=== PATIENT | male | born 1990 | race Caucasian/White ===

== ENCOUNTER 2023-08-19 11:44 | Emergency (ER) | payer OTHER, SELFPAY ==
--- NOTE | ~2023-08-19 | CT_ITS ---
EXAMINATION: CT ABDOMEN AND PELVIS WITH CONTRAST CLINICAL INFORMATION: Epigastric pain COMPARISON: None available. TECHNIQUE: Multidetector volumetric images were obtained from the superior aspect of the liver through the pubic symphysis following administration 85 mL of Omnipaque 350 intravenous contrast. Sagittal and coronal reformatted images were obtained on the technologist's workstation. Oral contrast: No This CT examination was performed using dose optimization techniques as appropriate, variously including the following: *Automated exposure control *Adjustment of mA and/or kV according to patient size (this includes techniques or standardized protocols for targeted exams where dose is matched to indication/reason for exam; i.e. extremities or head) *Use of iterative reconstruction technique DLP: 1113 mGy-cm FINDINGS: LUNG BASES: Small right pleural effusion. ABDOMINAL AND PELVIC WALL: Mild subcutaneous edema in the ventral abdominal wall. LIVER AND BILIARY TREE: Markedly hypoattenuating hepatic parenchyma compatible with hepatic steatosis. Liver is enlarged measuring 24.4 cm in span. GALLBLADDER: Unremarkable. PANCREAS: There is a 11.2 cm mixed attenuation lesion which is favored to be arising from the pancreatic body and tail with components measuring simple fluid attenuation and other components measuring high density. There are several additional loculated more simple-appearing peripancreatic fluid collections for example measuring 4.6 cm abutting the pancreatic tail, measuring 4 cm interposed between the pancreatic tail and splenic hilum and measuring 5.1 cm along the greater curvature of the stomach. There is some inflammatory stranding surrounding the pancreas. SPLEEN: The spleen is mildly enlarged measuring 14 cm in span ADRENAL GLANDS: Unremarkable. KIDNEYS AND URETERS: Unremarkable. GASTROINTESTINAL TRACT: Small hiatal hernia. There is duodenal wall thickening, possibly reactive. The appendix is not identified however there is no dilated tubular structure in the right lower quadrant to suggest appendicitis. VASCULAR: The large pancreatic body/tail lesion displaces the pancreatic vessels posteriorly. The splenic vein is attenuated. LYMPH NODES/PERITONEUM: No lymphadenopathy. FREE FLUID: There is small volume ascites, measuring simple fluid attenuation.. BLADDER: Unremarkable. PELVIC VISCERA: Unremarkable. OSSEOUS STRUCTURES: Tiny sclerotic density in the right femoral neck possibly reflecting a bone island. CT/CT abdomen pelvis w IV con IMPRESSION: 1. There is a 11.2 cm mixed attenuation lesion which is favored to be arising from the pancreatic body and tail with components measuring simple fluid attenuation and other components measuring high density, unclear based on the single phase of contrast timing if these could be intrinsically high density components such as blood products versus active bleeding, alternatively solid enhancing components. Findings are favored to reflect a complex hemorrhagic pancreatic pseudocyst in the setting of pancreatitis given multiple adjacent additional simple-appearing peripancreatic collections suggestive of pseudocysts and the mild peripancreatic stranding and small volume ascites suggesting pancreatitis, for which correlation with lipase is recommended, and if clinical concern for active bleeding into the lesion and multiphase CT abdomen could be obtained. The other differential consideration would be mixed solid and cystic pancreatic lesion such as a mucinous cystic neoplasm, and therefore recommend either short interval follow-up imaging or a multiphase CT or MR abdomen depending on degree of clinical suspicion. 2. Hepatomegaly and hepatic steatosis. 3. Mild splenomegaly. 4. Small right pleural effusion and small volume ascites. 5. Duodenal wall thickening, possibly reactive given suspicion for pancreatitis, though correlation with lipase as duodenitis would be another differential consideration. 6. Mild subcutaneous edema in the ventral abdominal wall.
[2023-08-19 12:06] VITALS: BP 137/83; BP 150/80; PULSE 100; PULSE 86; RESP 16; TEMP 36.5; O2SAT 100; O2SAT 99; BMI 34.0
--- NOTE | 2023-08-19 12:29 | ED.ABDPAIN ---
HPI - Abdominal Pain General Chief Complaint: General Medical Stated Complaint: ABD PAIN,FELT POP PER EMS Time Seen by Provider: 08/19/23 11:54 Source: patient and old records reviewed Mode of arrival: EMS Limitations: no limitations History of Present Illness HPI narrative: 33 yo male with PMH of anxiety, HTN, PUD - just diagnosed outside EGD start of July on PPI. Recent increase in ETOH some shakes when he's not drinking. Notes he was at work today when he bent forward and felt a pop and severe pain in upper abdomen. The pain has since improved but he still has severe pain. He was diaphoretic on EMS arrival. He has pain anytime he moves. Denies NSAID use. He notes for his abdominal pain and lack of appetite he has been having recently the PPI helps a lot he had blood work done with his PCP - he denies known derangements and has not had US or CT scan for it. MD elicited complaint: abdominal pain Pertinent past history: none Onset (ago): hour(s) (11am today) Pain Consistency: constant Location: epigastric Severity: severe Radiation: none Migration to: no migration Exacerbating factors: movement Relieving factors: nothing Associated symptoms: nausea Related Data Allergies Allergy/AdvReac Type Severity Reaction Status Date / Time No Known Allergies Allergy Verified 08/19/23 12:18 Review of Systems Review of Systems Constitutional : No Weight loss, No Fever, No Chills ENT/Mouth : No sore throat, No Rhinorrhea Eyes: No Swelling, No Redness Cardiovascular : No Chest Pain, No SOB, NoEdema Respiratory : No Cough, No Sputum, No Wheezing Gastrointestinal : Positive Nausea, no Vomiting, no Diarrhea, positive abdominal Pain, No Hematochezia, No Melena Genitourinary : No Dysuria, No Urinary Frequency, No Hematuria, No Urgency Musculoskeletal : No joint pain, No Myalgias, No Joint Swelling Skin : No Skin Lesions, No rash Neuro : No Weakness, No Numbness, No Dizziness, No Headache Psych : No Anxiety/Panic, No Depression All other systems reviewed and are negative. [facility] Past Medical History Attestation statement: The following information was validated with the patient. Source: old records reviewed Onset Date is defined in the Problem List Problems that require an onset date and time if occurred within 24 hrs of arrival to the ED Aortic Dissection and Rupture; Neurologic impairment; Cardiopulmonary Arrest; Endotracheal Intubation; Insertion or Replacement of Mechanical Circulatory Assist Device Medical History Anxiety PUD (peptic ulcer disease) HTN (hypertension) Social History Social History (Updated 08/19/23 @ 12:34 by Carli Ortega DO) Alcohol intake: current Alcohol intake frequency: a few times a week Smoked in Last 30 Days: No Use of substances other than those prescribed or required for medical reasons: No Advance Directives: No Advance Directives Information Provided: No Physical Exam ED Vital Signs: Vital Signs - 24 hr 08/19/23 12:06 08/19/23 15:23 Temperature 97.7 F 99.2 F Pulse Rate 86 95 Respiratory Rate 16 23 H Blood Pressure 137/83 105/61 Pulse Oximetry 100 98 Oxygen Delivery Method Room Air Room Air BMI result Body Mass Index 34.0 Appearance: Alert. Oriented X3. in pain mild acute distress. Eyes: Pupils equal, round and reactive to light. Scleral icterus ENT: Pharynx normal. Neck: Normal inspection. Neck supple. CVS: Normal heart rate and rhythm. Pulses normal. Respiratory: No respiratory distress. Breath sounds normal. Abdomen: Soft and moderate epigastric ttp with guarding noted, pain with movement, no hernia noted Skin: Skin warm and dry. Normal skin color. Normal skin turgor. Extremities: No lower extremity edema. No calf ttp Neuro: Oriented X 3. No motor deficit. No sensory deficit. Course Course Course Narrative: lactic acidosis due to liver disease and ETOH abuse not infection or severe sepsis pain improved with IV morphine repleting K and magnesium started on phenobarb protocol at this time Reevaluation(s) Reevaluation #1: message sent to GI 250pm after CT scan but I suspect that the patient will need tertiary level of care at this time. Reevaluation #2: IR does not manage pancreatic pseudocysts here at this time will transfer - [facility] call out made [facility] is closed to transfer 259pm Reevaluation #3: transfer to [place] ED - accepting Dr. Puente Additional Reevaluation(s): lactic acid down to 3.0 Medical Decision Making Medical Decision Making MDM Narrative: 33 yo male with PMH of anxiety, HTN, PUD - just diagnosed outside EGD start of July on PPI and recent heavy ETOH use here with severe abdominal pain - also has scleral icterus and shakes concern for some withdrawal - labs, IVF, versed, thiamine and CT scan for perforated ulcer vs possible pancreatitis, gastritis, PUD. Given abdomen will send to STAT CT scan Differential Diagnosis Differential Diagnoses: The differential diagnosis associated with the presentation includes perforated ulcer vs possible pancreatitis, gastritis, PUD. Admission/Observation Consideration of admission/observation: Escalation of care including admission/observation considered transfer to tertiary center given pseudocyst Consult Healthcare Provider Management of the patient was discussed with: Advertising Teacher (GI - transfer to tertiary [place]) Lab Data MDM Lab Attestation statement: I reviewed the patient's lab results. 08/19/23 12:41 08/19/23 12:41 Labs: Lab Results 08/19/23 Range/Units 12:41 WBC 5.5 (4.8-10.8) X10*3/uL RBC 3.48 L (4.60-5.80) X10*6/uL Hgb 12.3 L (14.0-18.0) g/dl Hct 35.8 L (42.0-52.0) % MCV 102.9 H (80.0-98.0) fL MCH 35.3 H (27.0-33.0) pg MCHC 34.4 (31.0-36.0) g/dl RDW 15.9 (11.0-16.0) % Plt Count 194 (160-400) X10*3/uL MPV 9.5 (9.4-12.4) fL Immature Gran % (Auto) 0.7 H (0.0-0.4) % Neut % (Auto) 83.5 H (45-73) % Lymph % (Auto) 7.9 L (20-40) % [place] % (Auto) 6.6 (2-11) % Eos % (Auto) 0.4 (0-4) % Baso % (Auto) 0.9 (0-2) % Lymph # (Auto) 0.4 L (1.2-4.9) X10*3/uL [place] # (Auto) 0.4 (0.1-1.2) X10*3/uL Eos # (Auto) 0.0 (0.0-0.4) X10*3/uL Baso # (Auto) 0.1 (0.0-0.2) X10*3/uL Abs Immat Gran (auto) 0.04 H (0.00-0.03) X10*3/uL Absolute Neuts (auto) 4.6 (2.0-8.3) x10*3/uL Absolute Nucleated RBC 0.000 (0.0-0.012) X10*3/uL Nucleated RBC % (auto) 0.0 (0.0-0.2) /100WBC PT 22.2 H (11.1-13.3) SEC INR 1.8 H (0.9-1.1) Sodium 135 (135-145) mmol/L Potassium 2.8 L* (3.3-5.1) mmol/L Chloride 91 L (96-108) mmol/L Carbon Dioxide 28 (22-29) mmol/L Anion Gap 19 (12-20) BUN 5 L (9-16) mg/dL Creatinine 0.68 (0.5-1.4) mg/dL Estim Creat Clear Calc 220.2 Estimated GFR > 60 Random Glucose 114 (60-115) mg/dL Lactic Acid 5.5 H* (0.5-2.0) mmol/L Calcium 8.3 L (8.4-10.2) mg/dL Magnesium 1.5 L (1.6-2.6) mg/dL Total Bilirubin 4.9 H (0.0-1.0) mg/dL Direct Bilirubin 3.3 H (0.0-0.5) mg/dL AST 308 H (5-37) U/L ALT 65 H (0-40) U/L Alkaline Phosphatase 157 H (39-117) U/L Lactate Dehydrogenase 435 H (118-273) U/L Total Protein 7.1 (6.5-8.0) g/dL Albumin 2.6 L (3.5-5.0) g/dL Lipase 102 H (8-78) U/L Ethyl Alcohol < 10 mg/dL COVID-19 (REJI) Negative (Negative) COVID-19 Clin Com See Note Independent Interpretation I performed an independent interpretation of an: EKG and CT Scan Interpretation: Rate: 97 Rhythm: NSR [place]: left Normal P waves. Normal ANTONIETA. Normal QRS complex. ST T wave : no JOSE, inverted t waves III qTC: 538 prior studies: no prior The study has been interpreted contemporaneously by me. . Radiology Impression Discussion of test interpretation with radiology: I have reviewed the radiologist's reading. Independent Historian Clinical information obtained from an independent historian. History obtained from or confirmed by: EMS External Record Review External record reviewed: Outpatient record Medications Administered Generic Name Dose Route Start Last Admin Trade Name Freq PRN Reason Stop Dose Admin Lactated Ringer's 1,000 mls @ 100 mls/hr 08/19/23 13:15 08/19/23 14:13 Lr IVCONT 100 mls/hr .Q10H AUGUSTUS Administration Potassium Chloride 10 meq in 100 mls @ 100 mls/hr 08/19/23 13:30 08/19/23 15:21 Potassium Chloride/H20 IV 08/19/23 17:29 100 mls/hr Q1H AUGUSTUS Administration Discontinued Medications Generic Name Dose Route Start Last Admin Trade Name Freq PRN Reason Stop Dose Admin Sodium Chloride 1,000 mls @ 999 mls/hr 08/19/23 12:30 08/19/23 14:04 Ns IV 08/19/23 13:30 Infused .Q1H1M AUGUSTUS Infusion Thiamine HCl 200 mg/ Sodium 102 mls @ 204 mls/hr 08/19/23 12:18 08/19/23 14:04 Chloride IV 08/19/23 12:47 Infused ONCE ONE Infusion Magnesium Sulfate 2 gm in 50 mls @ 25 mls/hr 08/19/23 13:16 08/19/23 13:45 Magnesium Sulfate/H2o IV 08/19/23 15:15 25 mls/hr ONCE ONE Administration Iohexol 100 ml 08/19/23 13:17 08/19/23 13:17 Iohexol 350 Mg/Ml 100 Ml Infus..Btl IV 08/19/23 13:18 85 ml ONCE ONE Administration Midazolam HCl 2 mg 08/19/23 12:18 08/19/23 12:45 Midazolam Hcl/Pf 2 Mg/2 Ml Vial IVPUSH 08/19/23 12:19 2 mg ONCE ONE Administration Morphine Sulfate 4 mg 08/19/23 13:02 08/19/23 13:48 Morphine Sulfate 4 Mg/Ml Cartridge IVPUSH 08/19/23 13:03 4 mg ONCE ONE Administration Protocol Ondansetron HCl 4 mg 08/19/23 13:57 08/19/23 14:12 Ondansetron Hcl 4 Mg/2 Ml Vial IVPUSH 08/19/23 13:58 4 mg ONCE ONE Administration Phenobarbital Sodium 347.1 mg 08/19/23 14:00 08/19/23 13:50 Phenobarbital Sodium 130 Mg/Ml Im Once IM 08/19/23 14:01 347.1 mg ONCE ONE Administration Protocol Potassium Chloride 40 meq 08/19/23 13:16 08/19/23 13:43 Potassium Chloride Packet 20 Meq Packet PO 08/19/23 13:17 40 meq ONCE ONE Administration Critical Care Time Critical Care Time Critical Care Time: Yes Total Critical Care Time: 90 Attestation: repletion of magnesium, potassium, IVF, IV morphine for pain improved symptoms, phenobarb protocol I attest to this time spent taking care of the patient Discharge Plan Discharge Clinical Impression: Acute hypokalemia, Acute alcoholic hepatitis, Hypomagnesemia, Pancreatic pseudocyst, Acidosis, lactic Alcohol withdrawal Qualifiers: Complication of substance-induced condition: uncomplicated Qualified Code(s): F10.930 - Alcohol use, unspecified with withdrawal, uncomplicated Abdominal pain Qualifiers: Abdominal location: epigastric Qualified Code(s): R10.13 - Epigastric pain Acute alcoholic pancreatitis Qualifiers: Acute pancreatitis complication: unspecified Qualified Code(s): K85.20 - Alcohol induced acute pancreatitis without necrosis or infection Patient Disposition: [facility] Transfer Details: [facility]
[2023-08-19] MEDS: 0.9 % Sodium Chloride 1,000 ML 999 ML IV (12:44)
[2023-08-19] MEDS: Midazolam HCl/PF 2 MG/2 ML VIAL IVPUSH (12:45)
[2023-08-19 12:47] LABS: MANUAL DIFF FLAG NO
[2023-08-19 12:49] LABS: Basophils Absolute Auto 0.1 X10*3/uL (0.0-0.2); Basophils Percent Auto 0.9 % (0-2); Eosinophils Percent Auto 0.4 % (0-4); Hematocrit 35.8 % (42.0-52.0); Hemoglobin 12.3 g/dl (14.0-18.0); Imm Gran Abs Auto 0.04 X10*3/uL (0.00-0.03); Imm Gran Pct Auto 0.7 % (0.0-0.4); Lymphocytes Absolute Auto 0.4 X10*3/uL (1.2-4.9); Lymphocytes Percent Auto 7.9 % (20-40); Mean Corpuscular HGB Conc 34.4 g/dl (31.0-36.0); Mean Corpuscular Hemoglobin 35.3 pg (27.0-33.0); Mean Corpuscular Volume 102.9 fL (80.0-98.0); Mean Platelet Volume 9.5 fL (9.4-12.4); Monocytes Absolute Auto 0.4 X10*3/uL (0.1-1.2); Monocytes Percent Auto 6.6 % (2-11); Neutrophils Absolute Auto 4.6 x10*3/uL (2.0-8.3); Neutrophils Percent Auto 83.5 % (45-73); Platelet Count 194 X10*3/uL (160-400); Red Blood Count 3.48 X10*6/uL (4.60-5.80); Red Cell Distribution Width 15.9 % (11.0-16.0); White Blood Count 5.5 X10*3/uL (4.8-10.8)
[2023-08-19 12:54] LABS: INTERNATIONAL NORM RATIO 1.8 (0.9-1.1); Prothrombin Time 22.2 SEC (11.1-13.3)
[2023-08-19 13:03] LABS: COVID-19 Test Negative (Negative); Ethanol < 10 mg/dL; IDNOW Serial# 58CA691E
[2023-08-19 13:05] LABS: Lactic Acid 5.5 mmol/L (0.5-2.0)
[2023-08-19 13:09] LABS: Alanine Aminotransferase 65 U/L (0-40); Albumin Level 2.6 g/dL (3.5-5.0); Alkaline Phosphatase 157 U/L (39-117); Anion Gap 19 (12-20); Aspartate Amino Transferase 308 U/L (5-37); Bilirubin Direct 3.3 mg/dL (0.0-0.5); Bilirubin Total 4.9 mg/dL (0.0-1.0); Blood Urea Nitrogen 5 mg/dL (9-16); Calcium 8.3 mg/dL (8.4-10.2); Carbon Dioxide 28 mmol/L (22-29); Chloride 91 mmol/L (96-108); Creatinine Clr Calc Pharmacy 220.2; Estimated Glomerular Filt Rate > 60; Glucose Random 114 mg/dL (60-115); Lactate Dehydrogenase 435 U/L (118-273); Lipase 102 U/L (8-78); Magnesium 1.5 mg/dL (1.6-2.6); Potassium 2.8 mmol/L (3.3-5.1); Sodium 135 mmol/L (135-145); Total Protein 7.1 g/dL (6.5-8.0)
[2023-08-19] MEDS: Thiamine HCL 200 MG in 0.9 % Sodium Chloride 100 ML 204 MG IV (13:10)
[2023-08-19] MEDS: iohexoL 350 MG/ML 100 ML INFUS..BTL IV (13:17)
--- NOTE | 2023-08-19 13:20 | ECG_ITS ---
Test Reason : ABD PAIN Blood Pressure : / mmHG Vent. Rate : 097 BPM Atrial Rate : 097 BPM P-R Int : 162 ms QRS Dur : 092 ms QT Int : 424 ms P-R-T Axes : 026 -10 -04 degrees QTc Int : 538 ms Normal sinus rhythm Nonspecific ST abnormality Prolonged QT Abnormal ECG No previous ECGs available Referred By: Carli Ortega Electronically Signed By:JOEL MCKEON
[2023-08-19] MEDS: Potassium Chloride Packet 20 MEQ PACKET 40 MEQ PO (13:43)
[2023-08-19] MEDS: Magnesium Sulfate/H2O 2 GM/50 ML PIGGYBACK IV (13:45)
[2023-08-19] MEDS: Morphine Sulfate 4 MG/ML CARTRIDGE IVPUSH ×2 (13:48→17:17)
[2023-08-19] MEDS: PHENobarbitaL sodium 130 MG/ML IM ONCE 347.1 MG IM (13:50)
[2023-08-19] MEDS: Potassium Chloride/H20 10 MEQ/100 ML PIGGYBACK 100 MEQ IV ×4 (14:09→17:51)
[2023-08-19] MEDS: ondansetron HCL 4 MG/2 ML VIAL IVPUSH (14:12)
[2023-08-19] MEDS: Lactated Ringers 1,000 ML 100 ML IVCONT (14:13)
[2023-08-19 14:46] LABS: Reflex Lactate? Lactic Acid Added
[2023-08-19 15:23] VITALS: BP 105/61; PULSE 95; RESP 23; TEMP 37.3; O2SAT 98
--- NOTE | 2023-08-19 15:34 | PC.NURSE ---
late entry: pt a&o x4, pleasant, calm, and cooperative. pt comes from work after feeling a pop to his LLQ when bending down at his desk. pt sts the pain was so bad he was sweating and felt as if he was going to pass out. per EMS, pt was diaphoretic on their arrival. pt appears well but in pain. ice pack to LLQ and yellow tinge to both eyes. pt quickly moved from hallway bed to 22. 20G IV placed to [facility], labs drawn and sent, fluids hung and pt medicated per oct. pt to CT scan immediately. pt reporting 4/10 pain that worsens with movement. Dr. Ortega requesting second line placed as lab results/CT scan results are back. VICKI Esquivel placed a second 20G IV to RAC and medicated pt per oct. pt's parents at bedside. pt to be transported to [facility] ED. awaiting EMS scheduling. plan of care ongoing.
[2023-08-19 16:44] VITALS: BP 129/78; PULSE 94; RESP 25; TEMP 37.6; O2SAT 97
[2023-08-19] MEDS: PHENobarbitaL sodium 130 MG/ML VIAL IM Q3Hx2 260 MG IM (16:45)
[2023-08-19 17:03] LABS: Reflex Lactate? 2 Y
[2023-08-19 17:17] VITALS: RESP 27
[2023-08-19 17:24] VITALS: BP 110/73; PULSE 97; RESP 17; TEMP 37.5; O2SAT 95
--- NOTE | 2023-08-19 17:35 | PC.NURSE ---
report given to Chris, catalyst plant supervisor at [facility] ED. pt on route via EMS.
[2023-08-19 17:40] LABS: ~Lactic Acid-LAB USE ONLY 1.9 mmol/L (0.5-2.0)
== END 2023-08-19 17:35 | disposition short-term general hospital (02) ==
PROVIDERS: Emergency Provider Emergency Medicine; PCP Internal Medicine
DX: K86.3 Pseudocyst of pancreas (principal); K85.20 Alcohol induced acute pancreatitis without necrosis or infection; F10.130 Alcohol abuse with withdrawal, uncomplicated; Y90.0 Blood alcohol level of less than 20 mg/100 ml; E87.6 Hypokalemia; K70.10 Alcoholic hepatitis without ascites; E83.42 Hypomagnesemia; E87.20 Acidosis, unspecified; R10.13 Epigastric pain; Z11.52 Encounter for screening for COVID-19
CPT/HCPCS: 36415; 74177; 80048; 80076; 80307; 83605; 83615; 83690; 83735; 85025; 85610; 86850; 86900; 86901; 87635; 93005; 96361; 96365; 96366; 96367; 96372; 96375; 96376; 99285; J2250; J2270; J2405; J2560; J3411; J3475; J3480; J7120; Q9967

== ENCOUNTER → 2023-08-19 13:20 | Outpatient (BNV) | payer OTHER, SELFPAY | PROVIDERS: Emergency Provider Emergency Medicine; PCP Internal Medicine; Visit Provider Internal Medicine | DX: I45.81 Long QT syndrome (principal) | CPT/HCPCS: 93010 ==